=== PATIENT | female | born 2000 | race American Indian/Alaskan Native ===

== ENCOUNTER 2019-09-03 01:12 | Emergency (ER) | payer MEDICAID ==
[2019-09-03] MEDS ORDERED: METOCLOPRAMIDE 10 MG/2 ML INJ IV PRN (02:30)
[2019-09-03] MEDS ORDERED: diphenhydrAMINE 50 MG/ML VIAL IV ONE (02:30)
[2019-09-03] MEDS ORDERED: MAGNESIUM SULFATE 2 GM/50 ML BAG IV ONE (02:36)
[2019-09-03] MEDS ORDERED: SODIUM CHLORIDE 0.9% 1000 ML 1,000 ML IV ONE (02:36)
[2019-09-03] MEDS ORDERED: METOCLOPRAMIDE 10 MG/2 ML INJ IV ONE (02:36)
[2019-09-03] MEDS ORDERED: methylPREDNISolone Sod Succinate 125 MG/2 ML INJ IV ONE (02:36)
[2019-09-03] MEDS ORDERED: ACETAMINOPHEN 500 MG TAB PO ONE (02:38)
--- NOTE | 2019-09-03 02:57 | Emergency Department Report ---
ED Headache HPI - General Chief Complaint: Headache Stated Complaint: 12WEEKS PREG,HEADACHE MIGRAINE Time Seen by Provider: 09/03/19 02:22 Source: patient Exam Limitations: no limitations - History of Present Illness Initial Comments: 18-year-old female currently 11 weeks with her first with history of migraines presents to the hospital with complaints of daily headaches for the last 13 weeks that worsened today. Patient has had daily bitemporal headaches that are intermittent and alleviated by Tylenol. Headaches often worse in the morning. This morning patient prophylactically took 500 mg of Tylenol upon waking patient developed a headache later in the afternoon/evening that was not alleviated by 1000 mg of Tylenol. Patient has an Excedrin Migraine tablet that contains caffeine, acetaminophen, and aspirin that she has not taken because she was unsure if the medication was safe in . Patient states she suffers from headaches that typically go away with p.o. intake but she has had similar migraine headaches in the past. She complains of bitemporal pain and light sensitivity. She denies nausea, vomiting, blurry vision, focal weakn ess, or numbness. Patient has initiated care with [facility] with [facility]. Allergies/Adverse Reactions: Allergies No Known Allergies Allergy (Verified 09/03/19 01:18) Home Medications: Ambulatory Orders Acetaminophen [8 Hour Acetaminophen] 650 mg PO Q8HR PRN #20 tablet.er 09/03/19 Butalb/Acetaminophen/Caffeine [Fioricet 50-300-40 mg CAP] 1 cap PO Q6HR PRN #20 cap 09/03/19 methylPREDNISolone [Medrol 4MG DOSEPAK (21 tabs)] 1 dose PO DAILY #1 tab.ds.pk 09/03/19 ED Review of Systems ROS: Stated complaint: 12WEEKS PREG,HEADACHE MIGRAINE Other details as noted in HPI Comment: All other systems reviewed and negative ED Past Medical Hx - Past Medical History Previous Medical History?: No - Surgical History Past Surgical History?: No - Social History Smoking Status: Never Smoker Substance Use Type: None - Medications Home Medications: Home Medications Medication Instructions Recorded Confirmed Last Taken Type Acetaminophen [8 Hour 650 mg PO Q8HR PRN #20 tablet.er 09/03/19 Unknown Rx Acetaminophen] Butalb/Acetaminophen/Caffeine 1 cap PO Q6HR PRN #20 cap 09/03/19 Unknown Rx [Fioricet 50-300-40 mg CAP] methylPREDNISolone [Medrol 4MG 1 dose PO DAILY #1 tab.ds.pk 09/03/19 Unknown Rx DOSEPAK (21 tabs)] ED Physical Exam - General Limitations: No Limitations - Other Other exam information: General: No acute distress Head: Atraumatic Eyes: normal appearance ENT: Moist mucous membranes Neck: Normal appearance, no midline tenderness Chest: Clear to auscultation bilaterally CV: Regular rate and rhythm Abdomen: Soft, normal bowel sounds, nontender, nondistended, no rebound or guarding Back: Normal inspection Extremity: Normal inspection, full range of motion Neuro: Alert O x 3, no facial asymmetry, speech clear, no gross motor sensory deficit Psych: Appropriate behavior Skin: No rash ED Course Vital Signs 09/03/19 09/03/19 09/03/19 01:16 03:00 03:07 Temperature 98.8 F 97.6 F Pulse Rate 112 H 89 Respiratory 18 18 18 Rate Blood Pressure 146/91 Blood Pressure 111/71 [Left] O2 Sat by Pulse 99 99 Oximetry ED Medical Decision Making - Medical Decision Making Patient treated with Tylenol, Reglan, Benadryl, magnesium, Solu-Medrol, IV magnesium and IV fluids with resolution of headache. Patient is pain-free and feels much better after ED treatment. Pt will d/cathy on meds for continued pain relief at home. - Differential Diagnosis Migraine, tension, cluster Critical Care Time: No Critical care attestation.: If time is entered above; I have spent that time in minutes in the direct care of this critically ill patient, excluding procedure time. ED Disposition Clinical Impression: Migraine headache, 11 weeks gestation of Disposition: DC- TO HOME OR SELFCARE Is pt being admited?: No Does the pt Need Aspirin: No Condition: Stable Instructions: Migraine Headache (ED), (ED) Additional Instructions: Take the medication as prescribed. For mild to moderate pain you may take Tylenol. If your headache is more severe or unrelieved by the 650 mg Tylenol tablet then you may also take Fioricet. Do not take either medication more frequently than prescribed. Follow-up with your doctor or doctor/clinic provided. A name of a neurologist has been provided for follow up. Return if symptoms worsen as indicated by your discharge instructions. Prescriptions: Acetaminophen [8 Hour Acetaminophen] 650 mg PO Q8HR PRN #20 tablet.er PRN Reason: Pain, Moderate (4-6) Butalb/Acetaminophen/Caffeine [Fioricet 50-300-40 mg CAP] 1 cap PO Q6HR PRN #20 cap PRN Reason: Headache methylPREDNISolone [Medrol 4MG DOSEPAK (21 tabs)] 1 dose PO DAILY #1 tab.ds.pk Referrals: PRIMARY CARE, [Primary Care Provider] - 3-5 Days DIANE NEWMAN MD [Staff Physician] - 7-10 days (neurology) Time of Disposition: 05:12
[2019-09-03 05:30] VITALS: BP 105/68
== END 2019-09-03 05:30 | disposition home or self-care (01) ==
LOC: ED 01:12
DX: O26.891 Other specified pregnancy related conditions, first trimester (principal); G43.909 Migraine, unspecified, not intractable, without status migrainosus; Z79.899 Other long term (current) drug therapy; Z3A.11 11 weeks gestation of pregnancy
CPT/HCPCS: 96365; 96375; 99283; J1200; J2765; J2930; J3475; J7030